=== PATIENT | female | born 1985 | race Caucasian/White ===

== ENCOUNTER 2023-11-02 02:25 | Inpatient (IN) | payer OTHER ==
[~2023-11-02] VITALS: Ht 165.1 cm; Wt 54.4 kg
[2023-11-02 03:04] LABS: BASOPHILS % (AUTO) 0.8 % (0.0-2.0); EOSINOPHILS % (AUTO) 0.5 % (0.0-7.0); HEMATOCRIT 29.7 % (31.2-41.9); HEMOGLOBIN 10.1 g/dL (10.9-14.3); LYMPHOCYTES # (AUTO) 0.8 K/uL (0.8-4.8); LYMPHOCYTES % (AUTO) 13.1 % (20.5-51.5); MEAN CORPUSCULAR HEMOGLOBIN 33.9 uug (24.7-32.8); MEAN CORPUSCULAR HGB CONC 34 g/dL (32.3-35.6); MEAN CORPUSCULAR VOLUME 99.7 fL (75.5-95.3); MONOCYTES # (AUTO) 0.7 K/uL (0.1-1.30); MONOCYTES % (AUTO) 11.8 % (0.0-11.0); NEUTROPHILS # (AUTO) 4.6 K/uL (1.8-8.9); NEUTROPHILS % (AUTO) 73.8 % (38.5-71.5); PLATELET COUNT (AUTO) 120 K/uL (179-408); RED BLOOD CELL COUNT(AUTO) 2.98 MIL/uL (3.63-4.92); RED CELL DISTRIBUTION WIDTH 19.8 % (12.3-17.7); WHITE BLOOD COUNT (AUTO) 6.3 K/uL (3.8-11.8)
[2023-11-02] MEDS ORDERED: LORAZEPAM 2 MG/1 ML VIAL IV ONE ×3 (03:15→04:30)
[2023-11-02] MEDS ORDERED: LORAZEPAM 2 MG/1 ML VIAL ONE (03:17)
[2023-11-02 03:27] LABS: MAGNESIUM 1.4 mg/dL (1.8-2.4)
[2023-11-02 03:31] LABS: CALCIUM 8.6 mg/dL (8.5-10.1); CARBON DIOXIDE 25 mmol/L (21-32); CHLORIDE 97 mmol/L (98-107); CREATININE 0.5 mg/dL (0.6-1.3); GLUCOSE 182 mg/dL (74-106); POTASSIUM 3.8 mmol/L (3.5-5.1); SODIUM SERUM 133 mmol/L (136-145); UREA NITROGEN, BLOOD 6 mg/dL (7-18)
[2023-11-02 03:32] LABS: ETHANOL < 3 MG/DL (0-10)
[2023-11-02 03:37] LABS: ALANINE AMINOTRANSFERASE 49 U/L (14-59); ALBUMIN 2.8 g/dL (3.4-5.0); ALKALINE PHOSPHATASE 259 U/L (50-136); ASPARTATE AMINOTRANSFERASE 133 U/L (15-37); BILIRUBIN,DIRECT 6.7 mg/dL (0.0-0.2); BILIRUBIN,TOTAL 9.9 mg/dL (0.2-1.0); TOTAL PROTEIN, SERUM 6.7 g/dL (6.4-8.2)
[2023-11-02 03:40] LABS: ACETAMINOPHEN < 10.0 ug/mL (10-30)
[2023-11-02 03:46] LABS: DIFFERENTIAL COMMENT 1
[2023-11-02] MEDS: MAGNESIUM SULFATE/D5W 100 ML IV SCH ×2 (04:04→05:00)
[2023-11-02] MEDS ORDERED: INSU100V11 (04:40)
[2023-11-02] MEDS ORDERED: LEVE1000 PO (04:40)
[2023-11-02] MEDS ORDERED: SERT100T PO (04:40)
[2023-11-02] MEDS ORDERED: TRAZ-257 PO (04:40)
[2023-11-02] MEDS ORDERED: LACT10SO3 PO (04:40)
[2023-11-02] MEDS ORDERED: PROP40TA7 PO (04:40)
[2023-11-02] MEDS ORDERED: LACO200T2 PO (04:40)
[2023-11-02] MEDS ORDERED: THIA100T74 PO (04:40)
[2023-11-02] MEDS ORDERED: RIFA550T PO (04:40)
[2023-11-02] MEDS ORDERED: SPIR50TA5 PO (04:40)
[2023-11-02] MEDS ORDERED: PANT40TA2 PO (04:40)
[2023-11-02] MEDS ORDERED: INSU100I26 SQ (04:40)
[2023-11-02] MEDS ORDERED: FURO-152 PO (04:40)
[2023-11-02] MEDS ORDERED: INSULIN REGULAR, HUMAN 300 UNIT/3 ML VIAL SQ PRN (05:15)
[2023-11-02] MEDS ORDERED: ACETAMINOPHEN 325 MG TABLET PO PRN (05:15)
[2023-11-02] MEDS ORDERED: hydrALAZINE HCL 20 MG/1 ML VIAL IV PRN (05:15)
[2023-11-02] MEDS ORDERED: DEXTROSE 50% 50 ML DISP.SYRIN IV PRN (05:15)
[2023-11-02] MEDS ORDERED: ONDANSETRON 4 MG/2 ML VIAL IV PRN (05:15)
[2023-11-02] MEDS ORDERED: INSULIN REGULAR, HUMAN 300 UNITS/3 ML VIAL SQ PRN (05:15)
[2023-11-02] MEDS ORDERED: DIAZEPAM 10 MG/2 ML DISP.SYRIN IV ONE (07:30)
[2023-11-02] MEDS: BLOOD SUGAR DIAGNOSTIC 1 EACH STRIP VI SCH ×3 (08:23→16:30)
[2023-11-02] MEDS: LACTULOSE 20 G/30 ML LIQUID UDC PO SCH ×2 (09:00→17:00)
[2023-11-02] MEDS: RIFAXIMIN 550 MG TABLET PO SCH ×2 (09:00→17:00)
[2023-11-02] MEDS ORDERED: PROPRANOLOL HCL 40 MG TABLET PO SCH (09:00)
[2023-11-02] MEDS ORDERED: PANTOPRAZOLE SODIUM 40 MG TABLET.DR PO SCH ×2 (10:53→22:53)
[2023-11-02 10:57] VITALS: O2SAT 94
[2023-11-02] MEDS ORDERED: MISCELLANEOUS MED XX PRN (11:15)
[2023-11-02] MEDS ORDERED: RIFAXIMIN 550 MG TABLET ONE ×2 (11:46→18:39)
[2023-11-02] MEDS ORDERED: LACTULOSE 20 G/30 ML LIQUID UDC ONE ×2 (11:46→18:39)
[2023-11-02] MEDS ORDERED: PROP10TA10 PO (11:55)
[2023-11-02] MEDS ORDERED: INSULIN GLARGINE,HUM 300 UNITS/3 ML CARTRIDGE SQ SCH (12:00)
[2023-11-02] MEDS ORDERED: SPIRONOLACTONE 50 MG TABLET PO SCH (12:00)
[2023-11-02] MEDS ORDERED: THIAMINE HCL 100 MG TABLET PO SCH (12:00)
[2023-11-02] MEDS ORDERED: SERTRALINE HCL 100 MG TABLET PO SCH (12:00)
[2023-11-02] MEDS ORDERED: FUROSEMIDE 20 MG TABLET PO SCH (12:00)
[2023-11-02] MEDS ORDERED: levETIRAcetam 500 MG TABLET PO SCH (12:00)
[2023-11-02] MEDS ORDERED: levETIRAcetam IV 1,000 MG in IV DEXTROSE 5% 100 ML IV SCH (12:15)
[2023-11-02] MEDS ORDERED: levETIRAcetam 500 MG/5 ML VIAL IV ONE (12:15)
[2023-11-02] MEDS ORDERED: LACOSAMIDE 50 MG TABLET ONE ×2 (12:15→18:39)
[2023-11-02] MEDS ORDERED: IV NS 1000 ML 1,000 ML IV PRN (12:15)
[2023-11-02] MEDS: LACOSAMIDE 50 MG TABLET PO SCH ×2 (12:35→17:00)
[2023-11-02] MEDS: PROPRANOLOL HCL 10 MG TABLET PO SCH ×2 (12:58→17:00)
[2023-11-02] MEDS ORDERED: THIAMINE HCL INJ 100 MG in IV DEXTROSE 5% 50 ML IV SCH (14:45)
[2023-11-02] MEDS ORDERED: PANTOPRAZOLE SODIUM IV 80 MG in IV DEXTROSE 5% 100 ML IV ONE (14:45)
[2023-11-02 16:57] LABS: HEMATOCRIT 26.1 % (31.2-41.9); HEMOGLOBIN 8.8 g/dL (10.9-14.3)
[2023-11-02 17:00] VITALS: BP 92/54
[2023-11-02 17:06] LABS: CALCIUM 8.1 mg/dL (8.5-10.1); CREATININE 0.7 mg/dL (0.6-1.3); POTASSIUM 3.1 mmol/L (3.5-5.1)
[2023-11-02] MEDS ORDERED: TRAZODONE 100 MG TABLET PO SCH (18:00)
[2023-11-02] MEDS ORDERED: PROPRANOLOL HCL 10 MG TABLET ONE (18:39)
== END 2023-11-02 11:15 | disposition short-term general hospital (02) | DRG 441 ==
LOC: ER 02:27 → EDBD 02:27 → TRANSITION 09:36
PROVIDERS: ADMIT Nurse Practitioner Acute Care; ATTEND Nurse Practitioner Acute Care
DX: K76.82 Hepatic encephalopathy (principal); G92.9 Unspecified toxic encephalopathy; E44.0 Moderate protein-calorie malnutrition; E87.1 Hypo-osmolality and hyponatremia; R64 Cachexia; K76.6 Portal hypertension; Z68.1 Body mass index [BMI] 19.9 or less, adult; K70.30 Alcoholic cirrhosis of liver without ascites; D64.9 Anemia, unspecified; E11.9 Type 2 diabetes mellitus without complications; E83.42 Hypomagnesemia; E86.0 Dehydration; E88.09 Other disorders of plasma-protein metabolism, not elsewhere classified; F17.200 Nicotine dependence, unspecified, uncomplicated; G40.909 Epilepsy, unspecified, not intractable, without status epilepticus; K26.9 Duodenal ulcer, unspecified as acute or chronic, without hemorrhage or perforation; F10.10 Alcohol abuse, uncomplicated; Z79.899 Other long term (current) drug therapy; Z79.4 Long term (current) use of insulin
CPT/HCPCS: 36415; 70450; 83605; 83735; 85018; 85025; 85610; A4606; C9113; G0378; G0480; J1815; J1953; J2060; J3411; J3475